=== PATIENT | male | born 1930 | race Caucasian/White ===

== ENCOUNTER 2021-03-18 15:32 | Emergency (ER) | payer OTHER ==
[~2021-03-18] VITALS: Ht 165.1 cm; Wt 77.1 kg
[2021-03-18 15:39] VITALS: BP_SYST 146
--- NOTE | 2021-03-18 15:45 | NUR ---
pt. drove himself here with c/o constipation, states has not had bm x 5 days, denies any abd. pain, no N/V, does have rectal pressure but unable to pass stool; no other complaints at this time, pt. denies taking any laxatives or stool softners.
--- NOTE | 2021-03-18 15:45 | NUR ---
Patient to ER bed 2 to gown for evaluation. Side rails up. Report given to CM NEFF AND CM DIETZ
--- NOTE | 2021-03-18 15:50 | NUR ---
ER at bedside examining patient.
--- NOTE | 2021-03-18 16:03 | NUR ---
radiology at bedside
[2021-03-18] MEDS ORDERED: POLY17PO4 PO (16:36)
[2021-03-18] MEDS ORDERED: SODIUM PHOSPHATE,MONO-DIBASIC 133 ML ENEMA RC ONE (16:45)
[2021-03-18 17:24] VITALS: BP_SYST 115
--- NOTE | 2021-03-18 17:25 | NUR ---
Patient given written and verbal discharge instructions and verbalizes understanding. ER MD discussed with patient the results and treatment provided. Patient in stable condition. ID arm band removed. Patient educated on pain management and to follow up with PMD. Pain Scale 0. Opportunity for questions provided and answered. Medication side effect fact sheet provided.
== END 2021-03-18 17:24 | disposition home or self-care (01) ==
LOC: SED 15:32
DX: K59.00 Constipation, unspecified (principal); Z79.899 Other long term (current) drug therapy
CPT/HCPCS: 74018; 99284